=== PATIENT | female | born 1955 | race Caucasian/White ===

== ENCOUNTER 2025-10-09 13:02 | Emergency (ER) | payer MEDICARE, OTHER, SELFPAY ==
[2025-10-09] VITALS (23 sets, daily range): BP systolic 114–166; BP diastolic 67–88; PULSE 42–99; RESP 11–28; TEMP 37.1; O2SAT 92–100
--- NOTE | 2025-10-09 13:18 | DI.RAD.S_ITS ---
PROCEDURE: XR CHEST 1V INDICATIONS: Shortness of breath TECHNIQUE: One view of the chest was acquired. COMPARISON: [facility], CT, CT CHEST WITHOUT CONTRAST, 10/01/2025, 6:48. [facility], CT, CT CHEST WITHOUT CONTRAST, 04/17/2025, 14:45. FINDINGS: Surgical changes and devices: None. Lungs and pleura: Masslike opacities are again seen involving both lungs, left worse than right. Low lung volumes are noted. This causes a crowded appearance to the lung markings and limits evaluation. No pneumothorax or pleural effusions are seen. Mediastinum: The cardiac contours are within normal limits. The aorta demonstrates calcification and tortuosity. Bones and chest wall: No suspicious bony lesions. Age-appropriate bony degenerative changes are seen. Mild dextroconvex scoliotic curvature is seen. Overlying soft tissues appear unremarkable. IMPRESSION: Bilateral masslike opacities are seen which are better demonstrated on the recent prior CT. Dictated by: Von Rogers M.D. on 10/09/2025 at 12:51 Approved by: Von Rogers M.D. on 10/09/2025 at 12:52
--- NOTE | 2025-10-09 13:18 | EKG_ITS ---
[address] [address] Test Date: 2025-10-09 Pat Name: Naya Rg Department: [facility] Room: Gender: Female Manager Progressive Care: THUY : 1955 Requested By: Order Number: [id number] Reading MD: Pineda Fox MD Measurements Intervals [place] Rate: 89 P: 59 MO: 140 QRS: -47 QRSD: 86 T: 71 QT: 374 QTc: 455 Interpretive Statements Sinus rhythm with occasional premature ventricular complexes Left anterior fascicular block Septal infarct , age undetermined Electronically Signed On 10-09-2025 14:29:21 PST by Pineda Fox MD
[2025-10-09 13:48] LABS: Add Manual Diff / Slide Review NO; Hematocrit 25.6 % (36-46); Hemoglobin 8.3 g/dL (12.0-16.0); Lymphocytes Absolute Auto 1500 /uL (1100-4500); Mean Corpuscular HGB Conc 32.4 % (30-36); Mean Corpuscular Hemoglobin 25.7 PG (26-34); Mean Corpuscular Volume 79.4 fL (80-100); Platelet Count 875 X10^3/uL (150-400)
[2025-10-09 13:51] LABS: INR 1.3 (0.9-1.3); Prothrombin Time 14.2 SECONDS (9.4-12.5)
[2025-10-09 13:54] LABS: Alanine Aminotransferase 23 IU/L (<35); Albumin 3.7 g/dL (3.5-5.0); Albumin Globulin Ratio 1.0 (1.0-2.8); Alkaline Phosphatase 132 U/L (38-126); Blood Urea Nitrogen 13 mg/dL (7-17); Calcium 9.1 mg/dL (8.4-10.2); Carbon Dioxide 26 mmol/L (22-32); Chloride 101 mmol/L (98-107); Estimated Glomerular Filt Rate > 60 mL/min (>60); Globulin 3.6 g/dL (1.7-4.1); Glucose 119 mg/dL (70-99); HEMOLYSIS < 15 (0-50); Lactate (Lactic Acid) 1.7 mmol/L (0.7-2.1); Potassium 2.9 mmol/L (3.4-5.1); Sodium 138 mmol/L (137-145); Total Protein 7.3 g/dL (6.3-8.2)
[2025-10-09 14:07] LABS: NT-proBNP (BNP-Adult 18+) 810 pg/mL (<125); Troponin I < 0.012 ng/mL (0.01-0.034)
[2025-10-09 14:10] LABS: Microcytosis 1+
--- NOTE | 2025-10-09 19:00 | PC.NURSE ---
Addendum entered by Akira Rosenbaum RN 10/09/25 19:14: This RN verified patient [place] order. Then this RN went and talked to provider and provider wrote for this prescription. This RN returned and talked to the patient and informed them that the provider does want to see them. Patient agrees to stay and is expresses thanks for addressing her pain. Primary nurse informed. Original Note: This RN went to check on patient. Patient requesting to leave and states that they are having a headache I've been asking for pain medication for hours. I normally take [place] 10mg three times a day for chronic pain. When asked patient states that she has a headache 08/28. This RN informed primary RN. This RN attempted to inform provider but provider is on the phone. Primary RN asked to continue to request medication and inform provider of patient desire to leave.
--- NOTE | 2025-10-09 19:16 | ED.GENADULT ---
HPI - General Adult General Chief complaint: Shortness of Breath/Dyspnea Stated complaint: Suspected collapsed lung R Side. Pain both sides Time Seen by Provider: 10/09/25 14:55 Source: patient Mode of arrival: Wheelchair History of Present Illness HPI narrative: 70-year-old woman with a history of bronchiectasis, psoriatic arthiris, type 2 diabetes, depression presents complaining of difficulty breathing with any exertion, productive cough, fever, diarrhea, exacerbation her chronic back pain. States her throat hurts and concerned she has thrush. Over the last couple of weeks she has lost 9 lb and is having significant diarrhea to 6 to 8 times a day, low-grade fevers, poor sleep with increasing pain overall. CT scan was done at at [facility] on October 01 with significant findings and referral to outpatient [employer] with the appointment scheduled [facility] for October 30. Related Data Home Medications ?Medication ?Instructions ?Recorded ?Confirmed cyclobenzaprine 5 mg tablet 5 mg PO DAILY 03/24/25 03/24/25 dexamethasone 0.1 % eye otic (ear) 03/24/25 03/24/25 drops,suspension dextroamphetamine-amphetamine 15 15 mg PO DAILY PRN 03/24/25 03/24/25 mg tablet fluoxetine 20 mg capsule 20 mg PO DAILY 03/24/25 03/24/25 hydrochlorothiazide 25 mg tablet 25 mg PO DAILY 03/24/25 03/24/25 hydrocodone 10 mg-acetaminophen 1 tab PO Q8H pain 03/24/25 10/09/25 325 mg tablet lorazepam 0.5 mg tablet 0.5 mg PO DAILY PRN 03/24/25 03/24/25 metformin 500 mg tablet 500 mg PO BID 03/24/25 03/24/25 metformin 500 mg tablet 500 mg PO DAILY 03/24/25 03/24/25 naloxone 4 mg/actuation nasal 1 spray intranasal .1 03/24/25 03/24/25 spray (Narcan) pantoprazole 40 mg tablet,delayed 40 mg PO DAILY 03/24/25 03/24/25 release pramipexole 0.5 mg tablet 0.5 mg PO BEDTIME PRN 03/24/25 03/24/25 trazodone 100 mg tablet 100 mg PO BEDTIME PRN 03/24/25 03/24/25 Allergies Allergy/AdvReac Type Severity Reaction Status Date / Time diphenhydramine (From Allergy Severe SOMULENT Verified 10/09/25 13:13 BENADRYL) exenatide (From BYETTA) Allergy Severe VOMIT Verified 10/09/25 13:13 hydroxyzine (From VISTARIL) Allergy Severe HALLUCINATI Verified 10/09/25 13:13 ONS niacin (NIACIN) Allergy Severe DIARRHEA Verified 10/09/25 13:13 simvastatin (SIMVASTATIN) Allergy Severe MUSCLE PAIN Verified 10/09/25 13:13 morphine (MORPHINE) Allergy Mild ITCHING Verified 10/09/25 13:13 epinephrine AdvReac Unknown Nausea Verified 10/09/25 13:13 Review of Systems Review of Systems Narrative: Pertinent positive and negative findings as per HPI Patient History Medical History (Updated 10/10/25 @ 00:22 by Karine Dobson MD) Psoriatic arthritis Diabetes Bronchiectasis Social History Smoking Status: Smoker, status unknown Smoking Status: Smoker, status unknown Exam Initial Vital Signs Initial Vital Signs: Vital Signs Temperature 98.8 F 10/09/25 13:13 Pulse Rate 79 10/09/25 13:13 Respiratory Rate 18 10/09/25 13:13 Blood Pressure 130/81 10/09/25 13:13 Pulse Oximetry 100 10/09/25 13:13 Oxygen Delivery Method Room Air 10/09/25 13:13 General: Generally ill-appearing, frail, coughing she is able to speak in full sentences HEENT: Dry mucous membranes, normal sclera with reactive pupils, Neck: No cervical adenopathy Respiratory: Lungs scattered wheeze, rales in different lung patel and rhonchi in the right base Cardiac: Regular rate and rhythm no murmurs no bruits Abdomen: Soft, nontender, no rebound or guarding, no flank pain Skin: Pale, dry Neurologic: Globally weak but otherwise Grossly neurologically intact with no obvious asymmetries or abnormalities Extremities: No trauma, no lower extremity edema Psych: Cooperative, appropriate insight and affect Course Orders Ordered: ED Orders 10/09/25 22:24 Sputum Culture Stat Vancomycin HCl (Vancomycin) 1,000 mg in 200 mls @ 150 mls/hr IV NOW KAL Vancomycin HCl (Vancomycin Per Pharmacy) 1 request MISC NOW PRN PRN Reason: PROTOCOL Discontinued Medications Hydrocodone Bitart/Acetaminophen (Hydrocodone/Acet 5/325 Tablet) 2 tab PO NOW ONE Stop: 10/09/25 19:06 Last Admin: 10/09/25 19:10 Dose: 2 tab Documented By: PEDRO Benzonatate (Benzonatate 100 Mg Capsule) 100 mg PO NOW ONE Stop: 10/09/25 21:07 Last Admin: 10/09/25 21:35 Dose: 100 mg Documented By: NED Droperidol (Droperidol 2.5 Mg/Ml Vial) 0.625 mg IV NOW ONE Stop: 10/09/25 23:30 Levofloxacin (Levaquin) 750 mg in 150 mls @ 100 mls/hr IV NOW ONE Stop: 10/09/25 22:34 Last Infusion: 10/09/25 22:34 Dose: Infused Documented By: Admin: 10/09/25 22:07 Dose: 100 mls/hr Documented By: NED Azithromycin 500 mg/ Dextrose 250 mls @ 250 mls/hr IV NOW ONE Stop: 10/09/25 21:06 Last Infusion: 10/09/25 23:23 Dose: Infused Documented By: Admin: 10/09/25 22:07 Dose: 250 mls/hr Documented By: NED Ceftriaxone Sodium 2,000 mg/ (Sodium Chloride) 100 mls @ 200 mls/hr IV NOW ONE Stop: 10/09/25 21:06 Last Infusion: 10/09/25 22:08 Dose: Infused Documented By: Admin: 10/09/25 21:35 Dose: 200 mls/hr Documented By: NED Piperacillin Sod/Tazobactam (Sod 4.5 gm/ Sodium Chloride) 100 mls @ 200 mls/hr IV NOW ONE Stop: 10/09/25 22:25 Last Admin: 10/09/25 23:35 Dose: 200 mls/hr Documented By: JAXON Potassium Chloride (Potassium Chloride 20 Meq Tab) 40 meq PO NOW ONE Stop: 10/09/25 21:06 Last Admin: 10/09/25 21:34 Dose: 40 meq Documented By: NED Vital Signs Vital signs: Vital Signs - 8 hr 10/09/25 16:30 10/09/25 16:30 10/09/25 17:00 Pulse Rate 92 H 92 H Respiratory Rate 18 14 Blood Pressure 131/76 Pulse Oximetry 98 96 Oxygen Delivery Method 10/09/25 17:00 10/09/25 17:13 10/09/25 17:13 Pulse Rate 94 H Respiratory Rate 13 Blood Pressure 126/72 124/74 Pulse Oximetry 98 Oxygen Delivery Method 10/09/25 17:30 10/09/25 17:30 10/09/25 18:52 Pulse Rate 93 H 42 L Respiratory Rate 21 Blood Pressure 136/75 Pulse Oximetry 96 96 Oxygen Delivery Method 10/09/25 18:53 10/09/25 18:53 10/09/25 18:59 Pulse Rate 42 L 99 H Respiratory Rate 20 Blood Pressure 166/88 H 166/88 H Pulse Oximetry 98 99 Oxygen Delivery Method Room Air 10/09/25 19:00 10/09/25 19:00 10/09/25 19:30 Pulse Rate 99 H 89 Respiratory Rate Blood Pressure 163/88 H Pulse Oximetry 96 98 Oxygen Delivery Method 10/09/25 20:00 10/09/25 20:30 10/09/25 21:00 Pulse Rate 87 85 85 Respiratory Rate Blood Pressure Pulse Oximetry 97 92 92 Oxygen Delivery Method 10/09/25 21:32 10/09/25 22:00 10/09/25 22:07 Pulse Rate 98 H 88 92 H Respiratory Rate 18 11 L 28 H Blood Pressure Pulse Oximetry 95 96 Oxygen Delivery Method Room Air 10/09/25 22:07 Pulse Rate Respiratory Rate Blood Pressure 136/75 Pulse Oximetry Oxygen Delivery Method Medical Decision Making Lab Data 10/09/25 13:32 10/09/25 13:32 Labs: Lab Results 10/09/25 Range/Units 13:32 WBC 15.3 H (4.5-11.0) X10^3/uL RBC 3.22 L (4.0-5.2) X10^6/uL Hgb 8.3 L (12.0-16.0) g/dL Hct 25.6 L (36-46) % MCV 79.4 L (80-100) fL MCH 25.7 L (26-34) PG MCHC 32.4 (30-36) % RDW 15.4 H (11.6-14.8) % Plt Count 875 H (150-400) X10^3/uL Neut % (Auto) 84.8 H (50-75) % Lymph % (Auto) 9.5 L (25-40) % [place] % (Auto) 4.6 (3-14) % Eos % (Auto) 0.6 L (2-4) % Baso % (Auto) 0.5 (0-2) % Neut # (Auto) 05442 H (1249-5832) /uL Lymph # (Auto) 1500 (9552-5349) /uL [place] # (Auto) 700 (0-900) /uL Eos # (Auto) 100 (0-450) /uL Baso # (Auto) 100 (0-100) /uL Platelet Estimate Incr RBC Morphology See below Microcytosis 1+ H PT 14.2 H (9.4-12.5) SECONDS INR 1.3 (0.9-1.3) Sodium 138 (137-145) mmol/L Potassium 2.9 L (3.4-5.1) mmol/L Chloride 101 (98-107) mmol/L Carbon Dioxide 26 (22-32) mmol/L BUN 13 (7-17) mg/dL Creatinine 0.82 (0.52-1.04) mg/dL Estimated GFR > 60 (>60) mL/min BUN/Creatinine Ratio 15.9 (6-22) Glucose 119 H (70-99) mg/dL Lactate 1.7 (0.7-2.1) mmol/L Calcium 9.1 (8.4-10.2) mg/dL Total Bilirubin 0.3 (0.2-1.3) mg/dL AST 24 (14-36) IU/L ALT 23 (<35) IU/L Alkaline Phosphatase 132 H (38-126) U/L Troponin I < 0.012 (0.01-0.034) ng/mL NT-Pro-B Natriuret Pep 810 H (<125) pg/mL Total Protein 7.3 (6.3-8.2) g/dL Albumin 3.7 (3.5-5.0) g/dL Globulin 3.6 (1.7-4.1) g/dL Albumin/Globulin Ratio 1.0 (1.0-2.8) Imaging Data CT scan - chest: Radiologist's Impression: Highlights from CT scan done on September 29, [facility] Report reads lungs and pleura: There is a new dense pleural based consolidation involving the lateral left upper lobe at a mid lung level measuring 6.9 x 6.8 by 4.3 cm. Airways extend into this area but air bronchograms are not technically visible. There is irregular aeration in a portion of this mass. A small cavitary spiculated nodule present anteriorly in the left lower lobe, also new. No left pleural effusion. Right upper lobe contains several scattered small patchy areas of ground-glass opacity. Mild right middle lobe bronchial thickening and postobstructive linear consolidation is slightly improved. Another new pleural-based dense consolidation in the posterior, superior aspect of the right lower lobe measures 2.6 x 4.8 x 4.6 cm. Subtle scattered ground-glass opacities are seen. No right pleural effusion. Central and peripheral airways are normal without bronchial wall thickening or bronchiectasis. Bones: Severe upper lumbar disc height loss, endplate irregularity, sclerosis and erosion. Multilevel spondylolisthesis. Degenerative endplate changes throughout the thoracic spine. Mediastinum and ysabel: There may be mediastinal adenopathy this and hilar adenopathy are not well seen without IV contrast. Impression: New bilateral pulmonary masses, most likely infectious or inflammatory. Given rapid development, underlying neoplasm is much less likely. Sputum culture or endobronchial evaluation is recommended MDM Narrative Medical decision making narrative: CC: Fever, productive cough, history of bronchiectasis with concerning CT scan over a week ago Complicating co-morbidities: Bronchiectasis, psoriatic arthritis on Humira, type 2 diabetes Data collected from: patient Medical records reviewed: Copy of [facility] scan from [facility] is obtained, no other medical records are immediately available Differential considered: Worsening bronchiectasis, sepsis, pneumonia, Exam documented above, pertinent findings include: Nausea, frail, abnormal lung exam without significant respiratory distress. Abdomen is benign Lab Test results independently reviewed as above. Pertinent findings: CBC shows a white count elevated at 15 3. Hemoglobin of 8.3, platelets high 875 Chemistries show a potassium of 2.9, minimally elevated alkaline phosphatase at 132 major of studies or reassuring Troponin is undetectable BNP is minimally elevated at 810 Imaging studies independently reviewed: Bilateral masslike opacities are seen which are better demonstrated on the recent prior CT. Consultations: -[facility] has no beds was unable to discuss with Pulmonary or infectious disease. [facility] has no beds. [facility] has no beds. [facility] may have options for transfer. [facility] with Dr. Castle[facility] Discussion with [facility]ist. Findings reviewed, patient will be transferred Treatments: Zofran, droperidol to help with nausea Antibiotics include Zosyn, ceftriaxone, azithromycin and vancomycin. Oral potassium for hyponatremia To [place] for pain control, Tess[place]on for cough Re-evaluations: Patient is very frustrated with lack of access to medical care in light of worsening symptoms over the last week now with vomiting and diarrhea. Feels that she has simply been bypass in the collected by the medical system. Discussion: 70-year-old woman with a history of psoriatic arthritis, chronic back pain, bronchiectasis with acute exacerbation of symptoms within the last 2 weeks and significantly worse over the last 3 days exacerbated by her vomiting and diarrhea. CT scan from the suggest some progression, elevated white blood cell count and increasingly productive sputum suggests worsening acute infection. She is not currently showing signs of sepsis nor impending respiratory distress she is not needing oxygen support. Given the weight loss, nausea, vomiting and concern for infection she is started on antibiotics including Zosyn, vancomycin, ceftriaxone and azithromycin. Her nausea but has been difficult to control overall. Patient has been accepted for transfer to [facility] for treatment and help with further diagnosis Discharge Plan Departure Patient Disposition: [facility] Clinical Impression: Atypical pneumonia, Acute hypokalemia, Nausea vomiting and diarrhea Prescriptions: No Action lorazepam 0.5 mg tablet 0.5 mg PO DAILY PRN metformin 500 mg tablet 500 mg PO DAILY Patient Comments: Take 1 tablet by mouth every morning with breakfast and 2 tablets every evening with dinner cyclobenzaprine 5 mg tablet 5 mg PO DAILY dextroamphetamine-amphetamine 15 mg tablet 15 mg PO DAILY PRN dexamethasone 0.1 % drops,suspension otic (ear) Rx Instructions: instill 3 drops into affected ear(s) at bedtime up to twice weekly as instructed fluoxetine 20 mg capsule 20 mg PO DAILY hydrochlorothiazide 25 mg tablet 25 mg PO DAILY hydrocodone-acetaminophen 10-325 mg tablet 1 tab PO Q8H Patient Comments: Take 1 tablet by mouth every 8hrs as needed for moderate pain for up to 4-6 hours up to 28 days. metformin 500 mg tablet 500 mg PO BID naloxone [Narcan] 4 mg/actuation spray,non-aerosol 1 spray intranasal .1 Rx Instructions: spray 1 dose into ONE nostril; PRN pantoprazole 40 mg tablet,delayed release (DR/EC) 40 mg PO DAILY pramipexole 0.5 mg tablet 0.5 mg PO BEDTIME PRN trazodone 100 mg tablet 100 mg PO BEDTIME PRN Referrals: Mitra Reyes DO [Primary Care Provider, Internal Medicine]
[2025-10-09] MEDS: POTASSIUM CHLORIDE 20 MEQ TAB 40 MEQ PO (21:34)
[2025-10-09] MEDS: cefTRIAXone 2,000 MG in SODIUM CHLORIDE 0.9% 100 ML 200 MG IV (21:35)
[2025-10-09] MEDS: BENZONATATE 100 MG CAPSULE PO (21:35)
[2025-10-09] MEDS: AZITHROMYCIN 500 MG in DEXTROSE 5% IN WATER 250 ML 250 MG IV (22:07)
[2025-10-09] MEDS: PIPERACILLIN/TAZO 4.5 GM in SODIUM CHLORIDE 0.9% 100 ML IV (23:35)
[2025-10-10] VITALS: BP 119/69; PULSE 83; RESP 17; O2SAT 95
[2025-10-10] MEDS: droPERidol 2.5 MG/ML VIAL 0.625 MG IV (00:27)
[2025-10-10] MEDS: SODIUM CHLORIDE 0.9% 1,000 ML 1000 ML IV (00:29)
[2025-10-10 00:30] VITALS: PULSE 96; RESP 18; O2SAT 97
[2025-10-10] MEDS: VANCOMYCIN PER PHARMACY 1 REQUEST MISC (00:39)
[2025-10-10] MEDS: LOPERAMIDE 2 MG CAPSULE PO (00:54)
[2025-10-10 01:00] VITALS: PULSE 75; RESP 16; O2SAT 98
[2025-10-10 01:28] VITALS: BP 112/59; PULSE 82; RESP 22; O2SAT 97
== END 2025-10-10 01:42 | disposition short-term general hospital (02) ==
PROVIDERS: Emergency Medicine; Emergency Provider Emergency Medicine; PCP Student in an Organized Health Care Education/Training Program
DX: J18.9 Pneumonia, unspecified organism (principal); E87.6 Hypokalemia; R11.2 Nausea with vomiting, unspecified; R19.7 Diarrhea, unspecified; J47.9 Bronchiectasis, uncomplicated
CPT/HCPCS: 71045; 80053; 83605; 83880; 84484; 85025; 85610; 93005; 93010; 96365; 96367; 96375; 99284; J0696; J1171; J1790; J1956; J2543; J7030; J7050; J7060